=== PATIENT | male | born 1990 ===

== ENCOUNTER 2017-06-30 20:48 | Emergency (ER) | payer MEDICAID ==
[2017-06-30 20:55] VITALS: TEMP 98.3
[2017-06-30] MEDS ORDERED: Albuterol-Ipratrop 3 mg / 0.5 (3 ml) UD INH STA ×2 (21:13→22:05)
--- NOTE | 2017-06-30 21:22 | ED PDOC ---
HPI: SOB/CHF/COPD Chief Complaint (Provider): SOB, cough History Per: Patient History/Exam Limitations: no limitations Onset/Duration Of Symptoms: Days (2) Current Symptoms Are (Timing): Still Present Initiating Event: Upper Respiratory Illness Current Respiratory Medications: Albuterol Associated Symptoms: Productive Cough, Other (diarrhea, body aches, congestion, runny nose) Additional History Per: Patient <Andrea Ji - Last Filed: 06/30/17 23:47> <Donovan Hewitt - Last Filed: 07/01/17 01:55> Time Seen by Provider: 06/30/17 21:04 Chief Complaint (Nursing): Shortness Of Breath Additional Complaint(s): 26 y/o M with PMD of childhood asthma presents to ED c/o SOB, productive cough, diarrhea, congestion and runny nose for 2 days. He uses his albuterol HFA at home PRN for SOB. Previous asthma attack 4 m/a. No recent hosp admission for asthma. Afebrile. No sick contacts, no recent traveling. Runny nose is clear, cough was dry at the beginning, now yellowish sputum. 2-3 episodes of NBNM diarrhea for the past 2 days. Denies vomiting or nausea. Tolerating PO. ( Andrea Ji) Supervising Attending Note - Supervising Attending Note The Documented history was done by the: Physician Family Support Worker The documented physical exam was done by the: Physician Family Support Worker - Attestation: I have personally seen and examined this patient.: Yes I have fully participated in the care of the patient.: Yes I have reviewed all pertinent clinical information, including history, physical exam and plan: Yes <Donovan Hewitt - Last Filed: 07/01/17 01:55> Past Medical History - Medical History PMH: Asthma, Fractures (Right arm) - Family History Family History: States: Unknown Family Hx <Andrea Ji - Last Filed: 06/30/17 23:47> <Donovan Hewitt - Last Filed: 07/01/17 01:55> Vital Signs: Last Vital Signs Temp 98.3 F 06/30/17 20:53 Pulse 89 07/01/17 00:04 Resp 18 07/01/17 00:04 BP 116/74 07/01/17 00:04 Pulse Ox 98 07/01/17 00:04 - Home Medications Home Medications: Ambulatory Orders Medication Instructions Recorded Albuterol 0.5% [Albuterol 0.5% 2.5 mg IH Q6 PRN #1 packet 06/30/17 Inhal Marcia (2.5 mg/0.5 ml) UD] Nebulizer [Compact Compressor 1 dev XX PRN PRN #1 dev 06/30/17 Nebulizer] predniSONE [predniSONE Tab] 60 mg PO QAM #12 tab 06/30/17 - Allergies Allergies/Adverse Reactions: Allergies Allergy/AdvReac Type Severity Reaction Status Date / Time amoxicillin Allergy ITCHING Verified 06/30/17 20:55 Review of Systems ROS Statement: Except As Marked, All Systems Reviewed And Found Negative ENT: Positive for: Nose Congestion Respiratory: Positive for: Cough, Shortness of Breath, Sputum Gastrointestinal: Positive for: Diarrhea Musculoskeletal: Positive for: Neck Pain <Andrea Ji - Last Filed: 06/30/17 23:47> Physical Exam - Physical Exam Appears: Positive for: Non-toxic, Uncomfortable. Negative for: No Acute Distress Skin: Positive for: Normal Color, Warm Eye Exam: Positive for: EOMI, PERRL ENT: Positive for: Nasal Congestion, Tonsillar Swelling. Negative for: Pharyngeal Erythema, Tonsillar Exudate Cardiovascular/Chest: Positive for: Regular Rate, Rhythm, Chest Non Tender. Negative for: Murmur Respiratory: Positive for: Decreased Breath Sounds. Negative for: Crackles, Rales, Rhonchi, Wheezing, Respiratory Distress Gastrointestinal/Abdominal: Positive for: Soft. Negative for: Tenderness, Distended, Guarding, Rebound Extremity: Negative for: Tenderness, Calf Tenderness, Swelling Neurologic/Psych: Positive for: Alert, Oriented. Negative for: Motor/Sensory Deficits <Andrea Ji - Last Filed: 06/30/17 23:47> - ECG O2 Sat by Pulse Oximetry: 95 <Andrea Ji - Last Filed: 06/30/17 23:47> <Donovan Hewitt - Last Filed: 07/01/17 01:55> - Progress ED Course And Treament: Markedly improved after duonebs x3 and 40 mg PO prednisone Flu neg Patient stable to DC home with 4 days of PO prednisone and nebs (Andrea Ji) Medical Decision Making <Andrea Ji - Last Filed: 06/30/17 23:47> <Donovan Hewitt - Last Filed: 07/01/17 01:55> Medical Decision Makin26 y/o with Hx of asthma presents with viral illness and asthma exacerbation Cough, SOB, congestion ,runny nose and diarrhea Flu serology Duonebs Prednisone PO Tylenol Monitor (Andrea Ji) Disposition - Patient ED Disposition Is Patient to be Admitted: No Counseled Patient/Family Regarding: Diagnosis, Rx Given - Disposition Disposition: Routine/Home Disposition Time: 23:35 <Andrea Ji - Last Filed: 06/30/17 23:47> <Donovan Hewitt - Last Filed: 07/01/17 01:55> - Clinical Impression Clinical Impression: Asthma exacerbation, URI (upper respiratory infection) - Disposition Referrals: [facility] [Outside] Condition: STABLE Additional Instructions: F/U with PMD within 2-3 days Prescriptions: Albuterol 0.5% [Albuterol 0.5% Inhal Marcia (2.5 mg/0.5 ml) UD] 2.5 mg IH Q6 PRN # 1 packet PRN Reason: Shortness Of Breath Nebulizer [Compact Compressor Nebulizer] 1 dev XX PRN PRN #1 dev PRN Reason: Shortness Of Breath predniSONE [predniSONE Tab] 60 mg PO QAM #12 tab Instructions: Avoiding Asthma Triggers Forms: [employer] (Mongolian)
[2017-06-30] MEDS ORDERED: Albuterol-Ipratrop 3 mg / 0.5 (3 ml) UD ONE ×2 (21:25→22:19)
[2017-07-01 00:05] VITALS: BP 116/74; PULSE 89; RESP 18; O2SAT 98
== END 2017-07-01 00:12 | disposition home or self-care (01) ==
LOC: H.ER 20:48
DX: J45.901 Unspecified asthma with (acute) exacerbation (principal); J06.9 Acute upper respiratory infection, unspecified